=== PATIENT | female | born 1980 | race Caucasian/White ===

== ENCOUNTER 2016-12-16 22:15 | Inpatient (IN) | payer BC ==
[~2016-12-16] VITALS: Ht 165.1 cm; Wt 90.9 kg
[~2016-12-16 22:15] MED LIST: DOCO1CAP10 PO; PRENTAB26 PO
[2016-12-16] MEDS ORDERED: LACTATED RINGER'S 1000ML 1,000 ML IV PRN (23:01)
[2016-12-16] MEDS ORDERED: LACTATED RINGER'S 1000ML 1,000 ML IV SCH (23:01)
[2016-12-16 23:04] VITALS: Ht 165.1 cm; Wt 90.9 kg
[2016-12-16] MEDS ORDERED: PENICILLIN G POTASSIUM IV 3 MU in DEXTROSE 5% 100ML 100 ML IV PRN (23:15)
[2016-12-16] MEDS ORDERED: PENICILLIN G POTASSIUM IV 6 MU in DEXTROSE 5% 250ML 250 ML IV ONE (23:30)
[2016-12-16 23:40] LABS: HEMATOCRIT 34.3 % (37-47); MEAN CELL VOLUME 88.9 fL (80-100); MEAN CORPUSCULAR HEMOGLOBIN 30.6 pg (25-34); MEAN CORPUSCULAR HGB CONC 34.4 g/dl (32-36); MEAN PLATELET VOLUME 12.2 fL (7.4-10.4); PLATELET COUNT 221 K/uL (130-400); RED BLOOD COUNT 3.86 M/uL (4.2-5.4); WHITE BLOOD COUNT 12.37 K/uL (4.8-10.8)
[2016-12-17] MEDS ORDERED: OXYTOCIN 30 UNITS/500ML NSS IV ONE (04:55)
[2016-12-17] MEDS ORDERED: LACTATED RINGER'S 1000ML 1,000 ML IV SCH (05:33)
--- NOTE | 2016-12-17 05:43 | Progress Note ---
Progress Note Date of Service Dec 17, 2016. Progress Note Delivery Note live male over intact perineum with Apgars 8/9 weight pending. Delayed cord blood clamping followed by cord blood and spontaneous delivery of intact placenta. No tears. Final sponge and instrument count are correct. EBL 150 ml. Mom and baby stable.
[2016-12-17] MEDS ORDERED: SUPERCREAM 0.870 % 15GM JAR EXT PRN (05:45)
[2016-12-17] MEDS ORDERED: ACETAMINOPHEN/CODEINE 300/30MG TAB PO PRN ×2 (05:45)
[2016-12-17] MEDS ORDERED: BENZOCAINE 20% AER SPR 82.5 GM CAN EXT PRN (05:45)
[2016-12-17] MEDS ORDERED: IBUPROFEN 600 MG TAB PO PRN (05:45)
[2016-12-17] MEDS ORDERED: OXYTOCIN 30 UNITS/500ML NSS IV PRN (05:45)
[2016-12-17] MEDS ORDERED: ACETAMINOPHEN 325 MG TAB PO PRN (05:45)
[2016-12-17] MEDS ORDERED: LANOLIN OINT EXT PRN ×2 (05:45)
[2016-12-17] MEDS ORDERED: HYDROCORTISONE ACETATE 25 MG SUPP PR PRN (05:45)
--- NOTE | 2016-12-17 06:08 | HISTORY & PHYSICAL EXAMINATION ---
DATE OF ADMISSION: 12/17/2016 HISTORY OF PRESENT ILLNESS: The patient is a 36-year-old white female, para 0-0-0-0 at 40 weeks' and one day, admitted in active labor. She is GBS positive. PAST MEDICAL HISTORY: Positive for polycystic ovaries and history of infertility. PAST SURGICAL HISTORY: Cryosurgery of the cervix and history of laparoscopy in the past for infertility. ALLERGIES: No known drug allergies. MEDICATIONS: vitamins. REVIEW OF SYSTEMS: Negative. FAMILY HISTORY: Noncontributory. PHYSICAL EXAMINATION: HEENT: Within normal limits. LUNGS: Clear to auscultation. COR: Regular rate and rhythm. ABDOMEN: Gravid. heart tones category 1. EXTREMITIES: Within normal limits. NEUROLOGIC: Intact. ASSESSMENT: Term . PLAN: Admit. Anticipate normal delivery.
[2016-12-17 07:50] VITALS: BP 122/73; PULSE 96; TEMP 36.6
[2016-12-17] MEDS: FERROUS SULFATE 325 MG TAB PO SCH (08:00)
[2016-12-17] MEDS: PRENATAL VITAMIN TAB PO SCH (08:00)
[2016-12-17 12:30] VITALS: BP 134/85; PULSE 89; TEMP 37
[2016-12-17 16:00] VITALS: BP 116/72; PULSE 88; TEMP 37.1; O2SAT 97
[2016-12-17 19:25] VITALS: BP 139/85; PULSE 92; TEMP 37.2; O2SAT 98
[2016-12-17] MEDS: DOCUSATE SODIUM 100 MG CAP PO SCH (20:29)
[2016-12-17 23:40] VITALS: BP 127/86; PULSE 83; TEMP 37; O2SAT 99
[2016-12-18 03:35] VITALS: BP 133/83; PULSE 82; TEMP 36.6; O2SAT 98
[2016-12-18 06:58] LABS: HEMATOCRIT 30.9 % (37-47)
--- NOTE | 2016-12-18 07:33 | OB/GYN Progress Note ---
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 Subjective conversation w/ patient, physical exam Ambulation: ambulating normally Voiding: no voiding problems Passing Gas: Yes Diet Tolerance: Regular Diet Lochia: Moderate Review of Systems Constitutional: No chills, No fatigue, No fever, No problem reported, No sweats , No weakness, No weight loss Respiratory: No cough, No dyspnea at rest, No dyspnea on exertion, No hemoptysis, No problem reported, No shortness of breath, No sputum, No wheezing Cardiac: No PND, No chest pain, No claudication, No edema, No orthopnea, No palpitations, No problem reported Breast: No breast lump, No breast pain, No change in shape, No nipple discharge , No problem reported, No see HPI Abdomen: No GI bleeding, No constipation, No diarrhea, No nausea, No pain, No problem reported, No vomiting Female : No abnormal vaginal bleeding, No dysuria, No hematuria, No incontinence, No problem reported, No see HPI, No urinary frequency, No vaginal discharge Vd Day #1 pt doing well anticipate disch tomorrow Objective Vital Signs Date Time Temp Pulse Resp B/P Pulse Ox O2 Delivery O2 Flow Rate FiO2 12/18/16 03:35 36.6 82 18 133/83 98 Room Air 12/17/16 23:40 99 Room Air 12/17/16 23:40 37.0 83 18 127/86 99 Room Air 12/17/16 19:25 37.2 92 18 139/85 98 Room Air 12/17/16 16:00 97 Room Air 12/17/16 16:00 37.1 88 16 116/72 12/17/16 12:30 37.0 89 20 134/85 12/17/16 07:50 36.6 96 20 122/73 Laboratory Results Last 24 Hours Test 12/18/16 06:36 Hemoglobin 10.7 g/dL Hematocrit 30.9 %
[2016-12-18] MEDS: DOCUSATE SODIUM 100 MG CAP PO SCH ×3 (08:00→20:00)
[2016-12-18 08:25] VITALS: BP 135/98; PULSE 86; TEMP 36.7
[2016-12-18] MEDS: FERROUS SULFATE 325 MG TAB PO SCH (08:27)
[2016-12-18] MEDS: PRENATAL VITAMIN TAB PO SCH (08:27)
[2016-12-18] MEDS ORDERED: DIPHTHERIA/TETANUS/PERTUSSIS 0.5 ML SYR/VIAL IM. ONE (09:00)
[2016-12-18] MEDS ORDERED: MEASLES, MUMPS & RUBELLA VIRUS VIAL SQ. ONE (09:00)
[2016-12-18 15:30] VITALS: BP 133/88; PULSE 78; TEMP 36.8
[2016-12-18] MEDS ORDERED: BISACODYL 5 MG TABEC PO SCH (20:00)
[2016-12-18 23:20] VITALS: BP 127/75; PULSE 95; TEMP 36.9; O2SAT 98
[2016-12-19] MEDS ORDERED: BISACODYL 10 MG SUPP PR PRN (07:00)
[2016-12-19] MEDS: FERROUS SULFATE 325 MG TAB PO SCH (07:41)
[2016-12-19] MEDS: PRENATAL VITAMIN TAB PO SCH (07:41)
[2016-12-19 07:50] VITALS: BP_SYST 146; BP_SYST 148; BP_DIAS 100; BP_DIAS 97; PULSE 76; TEMP 36.8
[2016-12-19 08:15] VITALS: BP 138/91
--- NOTE | 2016-12-19 08:40 | Discharge Instructions ---
Discharge Instructions Admission Reason for Admission: Active Labor Discharge Discharge Diagnosis / Problem: term delivered Discharge Goals Goal(s): Routine recovery after delivery Activity Recommendations Activity Limitations: as noted below Lifting Limitations: gradually increase as tolerated Exercise/Sports Limitations: gradually increase as tolerated May Resume Sexual Activity: after follow-up appointment Shower/Bathe: no limitations Driving or Machine Use: resume 3 days after discharge . Instructions / Follow-Up Instructions / Follow-Up ACTIVITY RECOMMENDATIONS: * Gradual return to full activity over the next 2-3 weeks. * No lifting - nothing heavier than baby over the next 2-3 weeks. * Do not engage in vigorous exercise, sexual activity or sports until cleared by your physician. * Do not drive or operate any motorized equipment until cleared by your physician. * You may shower/bathe daily. BREAST CARE: If you are not breast feeding: * Wear a supportive bra 24 hours a day for one to two weeks. * Avoid stimulating your breasts and nipples as much as possible during the first few weeks after delivery. * When taking a shower, have the warm water hit your back, not breasts. * When your breasts feel full, apply ice packs. Usually three to four times a day helps ease the discomfort. * Take a mild pain medication (Tylenol/Motrin) when you are uncomfortable. If breast feeding: * Use breast milk to lubricate nipples. Lansinoh cream may be used for sore nipples. You do not need to remove cream prior to breast feeding. If using a different brand of cream, check the label for directions regarding removal of cream prior to nursing. * Wear a supportive bra. * If having problems with breasts or breast feeding, call a bank consultant or your health care provider. EPISIOTOMY CARE: After delivery, if you have an episiotomy (stitches), the following steps will ease discomfort and aid healing. * For the first 24 hours after delivery, place ice packs next to your episiotomy to help reduce swelling. * After the first 24 hour-period, sitz baths, either portable or in the tub, are suggested. A shower with a shower arm sprayed over the episiotomy may be comforting. * Carrie care should be done after each voiding and bowel movement. Squirt warm water from a plastic bottle over the perineum (region of the body between the anus and urinary opening) and pat dry. * Use Dermoplast to ease discomfort. Shake container. [place] directly over the episiotomy. * Place a Tucks on a clean sanitary pad next to your episiotomy. OVER THE COUNTER MEDICATION: * For discomfort or pain, you may use Acetaminophen (Tylenol), Ibuprofen (Advil ), or Naproxen (Aleve) following the package directions. * For constipation you may use Colace following the package directions. SPECIAL CARE INSTRUCTIONS: When you are discharged from the hospital, it is important for you to follow the instructions listed below: * During the first week at home, you should be able to care for yourself and your baby. In addition, the usual light household activities are encouraged. * Limit your activities to the way you feel. Do not try to clean the house or move furniture. Be sensible. * If you actively engage in sports and have done so up until the time of your delivery, you may resume these activities as soon as you feel able. This may take up to one month or even longer. Use good judgment. * Continue to take your vitamins for at least six weeks after the of your baby. * Your diet need not be limited unless you were on a special diet before your delivery. Breast-feeding mothers need around 2500 calories per day and at least 64-80 ounces of fluid per day (8 to 10 glasses). * You should eat foods from the four major food groups. Crash diets or fad diets are to be avoided. Eating lean meats, fresh fruits and vegetables, low-fat dairy products, high fiber foods and a regular exercise program, will help you get back to your pre- weight without putting your health at risk. * Constipation is sometimes a problem after delivery. Take a mild laxative as needed. If breast feeding, Milk of Magnesia is acceptable to use. You may use a suppository or Fleets enema if no episiotomy. * A daily shower or tub bath is suggested. Be sure to thoroughly and gently dry the perineum. * A bloody vaginal discharge will usually continue until around four weeks post . A small amount of bleeding may continue for as long as six weeks. Vaginal discharge changes from the bright red bleeding after delivery to pink then brownish and finally yellowish-pink before becoming white and disappearing. * Bleeding may increase with activity. Your first period may come in 4-8 weeks. If you are breast feeding, your period may be delayed even longer. * [place] (sex) can begin whenever both you and your partner feel comfortable and do not have any form of genital infection. It is recommended that you wait until after your return appointment and discuss with your physician. If you have questions, please talk to your health care practitioner. A condom should be used to prevent infection and . * Foreplay, gentle intercourse and lubrication is very important the first several times to prevent pain. A water-based lubricant such as K-Y jelly or Astroglide may be used. * Tampons may be used six weeks after delivery. * Douching should be avoided for 6 weeks after delivery. * If you have RH negative blood and your baby is RH positive, you will receive RHOGAM by injection prior to discharge. The nurse will give you a card to keep with you that has the date and place that you received RHOGAM after delivery. * During your care, you had a Rubella screen done to check for the presence of rubella antibodies in your blood. If your test was negative, you will receive a Rubella vaccine prior to discharge. This vaccine may cause a fever, soreness at the injection site and flu-like symptoms. If these symptoms persist, notify your health care practitioner. is not advised for three months after a Rubella vaccine. There is a higher chance of having a baby with defects if conceived within three months of getting the vaccine. * If you were discharged 24 hours from delivery or before 48 hours: Visiting nurses will come to your home 48 hours after discharge to assess you and your baby. The visiting nurse will meet with you while you are in the hospital to arrange a time and get directions to your home. * Verbalizes understanding of car seat law as reviewed with patient nursing. * Car Seat hand-out given and reviewed with patient by nursing. * Shaken baby information reviewed with patient by nursing. Call you doctor if: * Heavy bleeding (saturating several pads an hour) or passing clots the size of your fist. * A fever >101 degrees F (38.3 degrees C) on two occasions four hours apart and/or chills. * Unusual pain in the pelvic or vaginal areas. * "Baby Blues" lasting longer than two weeks. If you have any questions or concerns, call your health care practitioner at . FOLLOW-UP VISIT: * Please call the office at to schedule a 6 week examination. It is important you keep this appointment. * It is important for you to make arrangements for either yearly or twice yearly check-ups thereafter. Current Hospital Diet Patient's current hospital diet: Regular OB Diet Discharge Diet Recommended Diet: Regular OB Diet Pending Studies Studies pending at discharge: no Medical Emergencies . Who to Call and When: Medical Emergencies: If at any time you feel your situation is an emergency, please call 911 immediately. . Non-Emergent Contact Non-Emergency issues call your: Primary Care Provider . . "Provider Documentation" section prepared by Daren Curiel. VTE Core Measure Inpt VTE Proph given/why not?: Treatment not indicated
--- NOTE | 2016-12-19 08:42 | OB/GYN Progress Note ---
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 Subjective conversation w/ patient Ambulation: ambulating normally, limited ambulation Voiding: no voiding problems Passing Gas: Yes Diet Tolerance: Regular Diet Lochia: Small Feeding Type: Breast Feeding Objective Vital Signs Date Time Temp Pulse Resp B/P Pulse Ox O2 Delivery O2 Flow Rate FiO2 12/18/16 23:20 36.9 95 18 127/75 98 Room Air 12/18/16 23:20 Room Air 12/18/16 15:30 36.8 78 20 133/88 Room Air 12/18/16 15:30 Room Air Physical Exam General Appearance: NO APPARENT DISTRESS Abdomen: non tender Fundus: Firm Extremities: non-tender, normal inspection, no pedal edema Assessment and Plan Post- Day Number: 2 Continue Routine Care: discharged
[2016-12-19 15:15] VITALS: BP_DIAS 91; PULSE 76; TEMP 36.8
== END 2016-12-19 12:00 | disposition home or self-care (01) | DRG 775 ==
LOC: C.LD 22:15 → C.OPB 22:15 → C.LD 23:02 → C.OPB 23:02 → C.OBG 12-17 07:49
PROVIDERS: ADMIT Obstetrics & Gynecology; ATTEND Obstetrics & Gynecology
PROC: 10E0XZZ Delivery of Products of Conception, External Approach (ICD-10-PCS; principal; 2016-12-17)
DX: O48.0 Post-term pregnancy (principal); Z37.0 Single live birth; O99.824 Streptococcus B carrier state complicating childbirth; Z3A.40 40 weeks gestation of pregnancy

== ENCOUNTER 2023-03-04 21:34 | Inpatient (IN) ==
[2023-03-04] MEDS ORDERED: SODIUM CHLORIDE 0.9% 1000ML 1,000 ML IV STA (22:17)
[2023-03-04] MEDS ORDERED: KETOROLAC TROMETHAMINE 15 MG/ML VIAL IV STA (22:17)
--- NOTE | 2023-03-04 22:30 | Emergency Department Note ---
Impression & Plan Diverticulitis of intestine with perforation and abscess, Left lower quadrant abdominal pain, Diarrhea ED Provider Note CHIEF COMPLAINT: Abdominal pain x1 week HISTORY OF PRESENT ILLNESS: This 42-year-old female patient presents to the emergency department via private vehicle for evaluation abdominal pain for the past 1 week. The patient states she started with sharp cramping, stabbing pain on Monday. By Monday, she had developed diarrhea which lasted about 24 hours. The diarrhea has seemed to improve but she has continued to experience cramping pains in her lower abdomen which have localized to the mid to left side. The patient states her menstrual period started today. She denies any associated documented fever, but did have chills 2 days ago and believes she may have had a fever at that time. She denies any abnormal vaginal discharge or pain with intercourse. The patient states that she does feel increased pressure when her bladder is full like she has to urinate. She has been taking Tylenol and naproxen without relief of her symptoms. She denies any nausea or vomiting. No dysuria, no frequency, urinary hesitancy, hematuria. No hematochezia or melena. REVIEW OF SYSTEMS: A 10 system review of systems was performed with positives and pertinent negatives listed in the history of present illness. All other systems were reviewed and are negative. ALLERGIES: Cat dander PHYSICAL EXAM: VITALS: Vitals are noted on the nurse's note and reviewed by myself. Vital signs stable. GENERAL: This is a 42-year-old female, in no acute distress, nondiaphoretic, we ll-developed well-nourished. SKIN: The skin was without rashes, erythema, edema, or bruising. There is no tenting of the skin. Capillary refill less than 2 seconds. HEAD: Normocephalic atraumatic. EYES: Conjunctivae without injection, sclerae without icterus. NECK: Supple without nuchal rigidity. No lymphadenopathy. No JVD. HEART: Regular rate and rhythm without murmurs gallops or rubs. LUNGS: Clear to auscultation bilaterally without wheezes, rales or rhonchi. No retractions or accessory muscle use. ABDOMEN: Positive bowel sounds x 4. Suprapubic tenderness to palpation, left greater than right. The abdomen is otherwise soft, without masses or organomegaly. Ceron sign negative. No guarding or rebound tenderness. No CVA tenderness bilaterally. MUSCULOSKELETAL: No muscle atrophy, erythema, or edema noted. Full range of motion without joint tenderness in all extremities. No tenderness to palpation. Normal gait. Strength 5/5 throughout. NEURO: Patient was alert and oriented to person place and time. No focal neurological deficits. An order was placed for continuous satellite project site monitor. The monitor showed a normal sinus rhythm at a ventricular rate of 98 bpm, per my interpretation. EMERGENCY DEPARTMENT COURSE: The patient was seen and evaluated as above. IV access obtained, labs drawn. Patient was medicated with IV fluids and Toradol. Ultrasound imaging was performed reviewed by myself and radiologist as noted. There was concern for loculated fluid collection in the left lower quadrant. The patient had already been prepped for CT imaging. This was completed and concerning for perforated diverticulitis with a 4.1 cm left lower quadrant abscess. Patient does have a leukocytosis of 13,000. Mild anemia with a hemoglobin of 11.2, hematocrit of 32.8. No thrombocytopenia. Renal, hepatic function and electrolytes without significant abnormality. Lipase 28. hCG negative. Urinalysis positive for blood and protein. Of note, the patient is currently menstruating. I did discuss the case with Loki Hernandez PA-C with general surgery. He did see and evaluate the patient. He did request that the patient be admitted to the medicine service. The patient was medicated with IV Zosyn. She was updated on all findings. [facility] did agree to see and evaluate the patient. Please see hospitalist and general surgery dictation regarding ongoing management care of this patient. Differential diagnosis includes ovarian torsion, endometriosis, ectopic , pelvic pain, UTI, cystitis, appendicitis, diverticulitis, mesenteric ischemia, PID, inflammatory bowel disease, renal colic, as well as other pathologies. I attest that I have personally reviewed the patient's current medication list. Blood Pressure Screening: Patient was found to have a slightly elevated blood pressure due to circumstances. I do not believe that the patient requires hypertension monitoring. The chart was completed utilizing [employer] voice recognition software. Grammatical errors, random word insertions, pronoun errors, and incomplete sentences are an occasional consequence of this system due to software limitations, ambient noise, and hardware issues. Any formal questions or concerns about the content, text, or information contained within the body of this dictation should be directly addressed to the provider for clarification. Past Med/Surg History Medical History No pertinent past medical history Social History Smoking Status: Never smoker Preferred Language: Malay Feels Safe at Home: Yes Allergies Allergies Allergy/AdvReac Type Severity Reaction Status Date / Time cat dander Allergy Unknown unk Verified 03/05/23 00:26 Home Meds Home Medications Medication Instructions Recorded Confirmed magnesium 250 mg tablet 0 mg PO DAILY 03/05/23 03/05/23 multivitamin 1 tab PO DAILY 03/05/23 03/05/23 riboflavin (vitamin B2) 400 mg 400 mg PO DAILY 03/05/23 03/05/23 tablet sumatriptan succinate 50 mg tablet 50 mg PO DIRECTED PRN Migraine 03/05/23 03/05/23 Headache Results & Data (ED) Vital Signs Vital Signs - 24 hr 03/04/23 21:35 03/04/23 22:23 03/04/23 22:24 Temperature 36.7 C Temperature Source Temporal Artery Scan Pulse Rate 104 H 98 H 99 H Pulse Rate from SpO2 Sensor 99 H Pulse Rhythm Regular Regular Pulse Strength Normal Respiratory Rate 18 20 21 Respiratory Effort / Characteristics Non-Labored Spontaneous Respiratory Depth Normal Respiratory Pattern Regular Blood Pressure 140/90 Blood Pressure Mean 106 Blood Pressure Position Sitting Pulse Oximetry 100 98 98 Oxygen Delivery Method Room Air Room Air Oxygen Flow Rate Sepsis Recent Fever Within 48 Hours No Sepsis New/Unexplained Change in Mental Status N/A Sepsis Action Taken by Nursing No Action Required 03/04/23 22:30 03/04/23 23:45 03/05/23 00:20 Temperature Temperature Source Pulse Rate 100 H 110 H 102 H Pulse Rate from SpO2 Sensor 99 H 103 H Pulse Rhythm Pulse Strength Respiratory Rate 15 26 H 23 Respiratory Effort / Characteristics Respiratory Depth Respiratory Pattern Blood Pressure 123/74 Blood Pressure Mean 90 Blood Pressure Position Pulse Oximetry 99 97 98 Oxygen Delivery Method High Flow Nasal Cannula Oxygen Flow Rate 2 Sepsis Recent Fever Within 48 Hours Sepsis New/Unexplained Change in Mental Status Sepsis Action Taken by Nursing 03/05/23 00:30 03/05/23 00:40 03/05/23 00:50 Temperature Temperature Source Pulse Rate 99 H 101 H 102 H Pulse Rate from SpO2 Sensor 98 H 102 H 104 H Pulse Rhythm Pulse Strength Respiratory Rate 24 23 26 H Respiratory Effort / Characteristics Respiratory Depth Respiratory Pattern Blood Pressure Blood Pressure Mean Blood Pressure Position Pulse Oximetry 98 97 98 Oxygen Delivery Method Oxygen Flow Rate Sepsis Recent Fever Within 48 Hours Sepsis New/Unexplained Change in Mental Status Sepsis Action Taken by Nursing 03/05/23 01:00 03/05/23 01:10 03/05/23 01:20 Temperature Temperature Source Pulse Rate 100 H 102 H 102 H Pulse Rate from SpO2 Sensor 101 H 101 H 101 H Pulse Rhythm Pulse Strength Respiratory Rate 26 H 18 28 H Respiratory Effort / Characteristics Respiratory Depth Respiratory Pattern Blood Pressure Blood Pressure Mean Blood Pressure Position Pulse Oximetry 96 99 96 Oxygen Delivery Method Oxygen Flow Rate Sepsis Recent Fever Within 48 Hours Sepsis New/Unexplained Change in Mental Status Sepsis Action Taken by Nursing 03/05/23 01:30 03/05/23 01:34 03/05/23 01:58 Temperature Temperature Source Pulse Rate 101 H 99 H 100 H Pulse Rate from SpO2 Sensor 101 H Pulse Rhythm Pulse Strength Respiratory Rate 22 20 Respiratory Effort / Characteristics Respiratory Depth Respiratory Pattern Blood Pressure 123/80 Blood Pressure Mean 94 Blood Pressure Position Pulse Oximetry 97 96 Oxygen Delivery Method Room Air Room Air Oxygen Flow Rate Sepsis Recent Fever Within 48 Hours Sepsis New/Unexplained Change in Mental Status Sepsis Action Taken by Nursing Laboratory Data 03/04/23 22:00 03/04/23 22:00 Lab Results 03/04/23 03/04/23 03/04/23 Range/Units 22:00 22:00 22:00 WBC 13.15 H (4.8-10.8) K/ul RBC 3.73 L (4.20-5.40) M/uL Hgb 11.2 L (12.0-16.0) g/dl Hct 32.8 L (37.0-47.0) % MCV 87.9 (80.0-100.0) fL MCH 30.0 (25.0-34.0) pg MCHC 34.1 (32.0-36.0) g/dL RDW Std Deviation 43.7 (36.4-46.3) fL RDW Coeff of Eun 13.5 (11.5-14.5) % Plt Count 366 (130-400) K/uL MPV 9.9 (9.4-12.4) fL Immature Gran % (Auto) 0.5 % Neut % (Auto) 78.5 % Lymph % (Auto) 9.4 % [place] % (Auto) 11.0 % Eos % (Auto) 0.4 % Baso % (Auto) 0.2 % Neut # (Auto) 10.34 H (1.40-6.50) K/uL Lymph # (Auto) 1.23 (1.2-3.4) K/uL [place] # (Auto) 1.44 H (0.11-0.59) K/uL Eos # (Auto) 0.05 (0-0.50) K/uL Baso # (Auto) 0.03 (0-0.2) K/uL Immature Gran # (Auto) 0.06 (0.01-0.20) K/uL Sodium 138 (136-145) mmol/L Potassium 3.1 L (3.5-5.1) mmol/L Chloride 100 (98-107) mmol/L Carbon Dioxide 28 (21-32) mmol/L Anion Gap 10 (3-11) BUN 9 (6-23) mg/dl Creatinine 0.63 (0.6-1.2) mg/dl Est Cr Clr Drug Dosing 117.9 ml/min Est GFR ( Amer) 130.0 ml/min Est GFR (Non-Af Amer) 112.2 ml/min BUN/Creatinine Ratio 14.3 (10-20) Glucose 99 (70-99(Fasting)) mg/dl Lactate (0.4-2.0) mmol/L Calcium 8.8 (8.6-10.3) mg/dl Total Bilirubin 0.4 (0.2-1.0) mg/dl AST 13 (13-39) U/L ALT 16 (7-52) U/L Alkaline Phosphatase 73 (34-104) U/L Total Protein 7.3 (6.0-8.3) gm/dl Albumin 3.9 (3.4-5.0) gm/dl Globulin 3.4 (2.5-4.0) gm/dl Albumin/Globulin Ratio 1.1 (0.9-2) Lipase 20 (11-82) U/L HCG, Qual Negative (Negative) Urine Color Urine Appearance (Clear) Urine pH (4.5-7.5) Ur Specific [place] (1.000-1.030) Urine Protein (Negative) Urine Glucose (UA) (Negative) Urine Ketones (Negative) Urine Blood (Negative) Urine Nitrite (Negative) Urine Bilirubin (Negative) Urine Urobilinogen (Negative) Ur Leukocyte Esterase (Negative) Urine WBC (Auto) (0-5) /hpf Urine RBC (Auto) (0-4) /hpf U Hyaline Cast (Auto) (0-5) /lpf U Epithel Cells (Auto) (0-5) /lpf Urine Bacteria (Auto) (Negative) SARS-CoV-2, RNA, NAAT (NEGATIVE) 03/04/23 03/04/23 03/05/23 Range/Units 22:00 23:57 01:12 WBC (4.8-10.8) K/ul RBC (4.20-5.40) M/uL Hgb (12.0-16.0) g/dl Hct (37.0-47.0) % MCV (80.0-100.0) fL MCH (25.0-34.0) pg MCHC (32.0-36.0) g/dL RDW Std Deviation (36.4-46.3) fL RDW Coeff of Eun (11.5-14.5) % Plt Count (130-400) K/uL MPV (9.4-12.4) fL Immature Gran % (Auto) % Neut % (Auto) % Lymph % (Auto) % [place] % (Auto) % Eos % (Auto) % Baso % (Auto) % Neut # (Auto) (1.40-6.50) K/uL Lymph # (Auto) (1.2-3.4) K/uL [place] # (Auto) (0.11-0.59) K/uL Eos # (Auto) (0-0.50) K/uL Baso # (Auto) (0-0.2) K/uL Immature Gran # (Auto) (0.01-0.20) K/uL Sodium (136-145) mmol/L Potassium (3.5-5.1) mmol/L Chloride (98-107) mmol/L Carbon Dioxide (21-32) mmol/L Anion Gap (3-11) BUN (6-23) mg/dl Creatinine (0.6-1.2) mg/dl Est Cr Clr Drug Dosing ml/min Est GFR ( Amer) ml/min Est GFR (Non-Af Amer) ml/min BUN/Creatinine Ratio (10-20) Glucose (70-99(Fasting)) mg/dl Lactate 1.2 (0.4-2.0) mmol/L Calcium (8.6-10.3) mg/dl Total Bilirubin (0.2-1.0) mg/dl AST (13-39) U/L ALT (7-52) U/L Alkaline Phosphatase (34-104) U/L Total Protein (6.0-8.3) gm/dl Albumin (3.4-5.0) gm/dl Globulin (2.5-4.0) gm/dl Albumin/Globulin Ratio (0.9-2) Lipase (11-82) U/L HCG, Qual (Negative) Urine Color Yellow Urine Appearance Clear (Clear) Urine pH 6.5 (4.5-7.5) Ur Specific [place] 1.011 (1.000-1.030) Urine Protein 1+ H (Negative) Urine Glucose (UA) Negative (Negative) Urine Ketones Negative (Negative) Urine Blood 1+ H (Negative) Urine Nitrite Negative (Negative) Urine Bilirubin Negative (Negative) Urine Urobilinogen Negative (Negative) Ur Leukocyte Esterase Negative (Negative) Urine WBC (Auto) 1-5 (0-5) /hpf Urine RBC (Auto) 0-4 (0-4) /hpf U Hyaline Cast (Auto) 0 (0-5) /lpf U Epithel Cells (Auto) 10-20 H (0-5) /lpf Urine Bacteria (Auto) Negative (Negative) SARS-CoV-2, RNA, NAAT NEGATIVE (NEGATIVE) Administered Medications Discontinued Medications Sodium Chloride (Nss 1000ml) 1,000 mls @ 999 mls/hr IV .Q1H1M STA Stop: 03/04/23 23:17 Last Infusion: 03/05/23 00:00 Dose: 0 mls/hr Documented By: Admin: 03/04/23 22:33 Dose: 999 mls/hr Documented By: DAYANA Piperacillin Sod/Tazobactam Sod (Zosyn) 4.5 gm in 120 mls @ 240 mls/hr IV NOW ONE Stop: 03/05/23 01:40 Last Infusion: 03/05/23 02:30 Dose: 0 mls/hr Documented By: Admin: 03/05/23 01:56 Dose: 240 mls/hr Documented By: DAYANA Ioversol (Optiray 320 500ml) 98 ml IV ONCE ONE Stop: 03/05/23 00:23 Last Admin: 03/05/23 00:22 Dose: 98 ml Documented By: VERNA Ketorolac Tromethamine (Ketorolac Tromethamine 15 Mg/Ml Vial) 10 mg IV NOW STA Stop: 03/04/23 22:18 Last Admin: 03/04/23 22:28 Dose: 10 mg Documented By: DAYANA Imaging Data Radiologist's Impression: Abdomen/Pelvis CT 03/04/23 22:17 Exam(s): CT ABDOMEN + PELVIS With Contrast Oral - High Density Amt: 30ml Gastrograffin, IV Amt: 98ml Optiray 320 EXAM: CT Abdomen and Pelvis With Intravenous Contrast CLINICAL HISTORY: Reason for exam: suprapubic, LLQ pain. TECHNIQUE: Axial computed tomography images of the abdomen and pelvis with intravenous contrast. Automated exposure control was utilized for the study. A dose lowering technique was utilized adhering to the principles of ALARA. CONTRAST: Patient received 30ml Gastrograffin of Oral - High Density and 98ml Optiray 320 of IV contrast COMPARISON: No relevant prior studies available. FINDINGS: Lung bases: Unremarkable. No mass. No consolidation. ABDOMEN: Liver: Unremarkable. No mass. Gallbladder and bile ducts: Unremarkable. No calcified stones. No ductal dilation. Pancreas: Unremarkable. No mass. No ductal dilation. Spleen: Unremarkable. No splenomegaly. Adrenals: Unremarkable. No mass. Kidneys and ureters: Unremarkable. No solid mass. No hydronephrosis. Stomach and bowel: Findings suggest perforated diverticulitis with an air and fluid-filled collection in the left lower quadrant measuring 4.1 x 3.3 x 3.6 cm. No obstruction. PELVIS: Appendix: No findings to suggest acute appendicitis. Bladder: Unremarkable. No mass. Reproductive: There is a tampon in place within the vagina. ABDOMEN and PELVIS: Intraperitoneal space: Unremarkable. No free air. No significant fluid collection. Bones/joints: No acute fracture. No dislocation. Soft tissues: Unremarkable. Vasculature: Unremarkable. No abdominal aortic aneurysm. Lymph nodes: Unremarkable. No enlarged lymph nodes. IMPRESSION: Perforated diverticulitis with a 4.1 cm left lower quadrant abscess. Electronically signed by: Siva Zavala MD 03/05/23 00:49 AM Pelvis Ultrasound 03/04/23 22:17 Exam(s): US PELVIS EXAM: US Pelvis Transabdominal, Complete CLINICAL HISTORY: Reason for exam: pelvic pain, LLQ pain. TECHNIQUE: Real-time complete transabdominal pelvic ultrasound with image documentation. COMPARISON: No relevant prior studies available. FINDINGS: Uterus/cervix: Endometrial lining measures 0.8 cm. The uterus measures 7.3 x 3.9 x 5.0 cm. No myometrial mass. Right ovary: The right ovary measures 4.2 x 1.7 x 2.8 cm. Normal blood flow. Left ovary: The left ovary measures 3.8 x 2.6 x 3.3 cm. Normal blood flow. Free fluid: There is some loculated fluid in the left lower quadrant. Bladder: Unremarkable as visualized. Wall is normal thickness for degree of distention. IMPRESSION: Loculated fluid in the left lower quadrant, further evaluation with CT is suggested. Unremarkable evaluation of the uterus and ovaries. Electronically signed by: Siva Zavala MD 03/05/23 00:18 AM Discharge Plan Visit Data Chief Complaint: Abdominal Pain Stated Complaint: LOWER ABDOMINAL PAIN ED Provider: Loi Brar ED Midlevel Provider: Marce Sosa Discharge Problem: Diverticulitis of intestine with perforation and abscess, Left lower quadrant abdominal pain, Diarrhea Patient Disposition: Admitted As Inpatient Discharge Instructions Interventions: ED Discharge Assessment Last Done: 03/05/23 03:13
[2023-03-04 22:32] LABS: Appearance Urine Clear (Clear); Bacteria Urine Automated Negative (Negative); Bilirubin Urine Negative (Negative); Blood Urine 1+ (Negative); Cast Urine Automated 0 /lpf (0-5); Color Urine Yellow; Glucose Urine UA Negative (Negative); Ketones Urine Negative (Negative); Leukocyte Esterase Urine Negative (Negative); Nitrite Urine Negative (Negative); Protein Urine 1+ (Negative); RBC Urine Automated 0-4 /hpf (0-4); Specific Gravity Urine 1.011 (1.000-1.030); Urobilinogen Urine Negative (Negative); pH Urine 6.5 (4.5-7.5)
[2023-03-04 22:36] LABS: Basophils # (auto) 0.03 K/uL (0-0.2); Basophils % (auto) 0.2 %; Eosinophils # (auto) 0.05 K/uL (0-0.50); Eosinophils % (auto) 0.4 %; Hematocrit (blood only) 32.8 % (37.0-47.0); Hemoglobin 11.2 g/dl (12.0-16.0); Immature Granulocytes # (auto) 0.06 K/uL (0.01-0.20); Immature Granulocytes % (auto) 0.5 %; Lymphocytes # (auto) 1.23 K/uL (1.2-3.4); Lymphocytes % (auto) 9.4 %; Mean Corpuscular Hgb Conc 34.1 g/dL (32.0-36.0); Mean Corpuscular Volume 87.9 fL (80.0-100.0); Mean Platelet Volume 9.9 fL (9.4-12.4); Monocytes # (auto) 1.44 K/uL (0.11-0.59); Neutrophils # (auto) 10.34 K/uL (1.40-6.50); Neutrophils % (auto) 78.5 %; Platelet Count 366 K/uL (130-400); RDW Coefficient of Variation 13.5 % (11.5-14.5); RDW Standard Deviation 43.7 fL (36.4-46.3); Red Blood Count 3.73 M/uL (4.20-5.40); White Blood Count 13.15 K/ul (4.8-10.8)
[2023-03-04 22:48] LABS: Pregnancy Test, Serum Negative (Negative)
[2023-03-04 22:51] LABS: Albumin Globulin Ratio 1.1 (0.9-2); Albumin Level 3.9 gm/dl (3.4-5.0); BUN Creatinine Ratio 14.3 (10-20); Bilirubin,Total 0.4 mg/dl (0.2-1.0); Calcium 8.8 mg/dl (8.6-10.3); Creatinine Clr Calc Pharmacy 117.9 ml/min; Est GFR (Non-African American) 112.2 ml/min; Globulin 3.4 gm/dl (2.5-4.0); Potassium 3.1 mmol/L (3.5-5.1); Total Protein 7.3 gm/dl (6.0-8.3)
--- NOTE | 2023-03-05 00:19 | Ultrasound Report ---
Exam(s): US PELVIS EXAM: US Pelvis Transabdominal, Complete CLINICAL HISTORY: Reason for exam: pelvic pain, LLQ pain. TECHNIQUE: Real-time complete transabdominal pelvic ultrasound with image documentation. COMPARISON: No relevant prior studies available. FINDINGS: Uterus/cervix: Endometrial lining measures 0.8 cm. The uterus measures 7.3 x 3.9 x 5.0 cm. No myometrial mass. Right ovary: The right ovary measures 4.2 x 1.7 x 2.8 cm. Normal blood flow. Left ovary: The left ovary measures 3.8 x 2.6 x 3.3 cm. Normal blood flow. Free fluid: There is some loculated fluid in the left lower quadrant. Bladder: Unremarkable as visualized. Wall is normal thickness for degree of distention. IMPRESSION: Loculated fluid in the left lower quadrant, further evaluation with CT is suggested. Unremarkable evaluation of the uterus and ovaries. Electronically signed by: Siva Zavala MD 03/05/23 00:18 AM
[2023-03-05] MEDS ORDERED: OPTIRAY 320 500ml IV ONE (00:22)
--- NOTE | 2023-03-05 00:50 | CT Scan Report ---
Exam(s): CT ABDOMEN + PELVIS With Contrast Oral - High Density Amt: 30ml Gastrograffin, IV Amt: 98ml Optiray 320 EXAM: CT Abdomen and Pelvis With Intravenous Contrast CLINICAL HISTORY: Reason for exam: suprapubic, LLQ pain. TECHNIQUE: Axial computed tomography images of the abdomen and pelvis with intravenous contrast. Automated exposure control was utilized for the study. A dose lowering technique was utilized adhering to the principles of ALARA. CONTRAST: Patient received 30ml Gastrograffin of Oral - High Density and 98ml Optiray 320 of IV contrast COMPARISON: No relevant prior studies available. FINDINGS: Lung bases: Unremarkable. No mass. No consolidation. ABDOMEN: Liver: Unremarkable. No mass. Gallbladder and bile ducts: Unremarkable. No calcified stones. No ductal dilation. Pancreas: Unremarkable. No mass. No ductal dilation. Spleen: Unremarkable. No splenomegaly. Adrenals: Unremarkable. No mass. Kidneys and ureters: Unremarkable. No solid mass. No hydronephrosis. Stomach and bowel: Findings suggest perforated diverticulitis with an air and fluid-filled collection in the left lower quadrant measuring 4.1 x 3.3 x 3.6 cm. No obstruction. PELVIS: Appendix: No findings to suggest acute appendicitis. Bladder: Unremarkable. No mass. Reproductive: There is a tampon in place within the vagina. ABDOMEN and PELVIS: Intraperitoneal space: Unremarkable. No free air. No significant fluid collection. Bones/joints: No acute fracture. No dislocation. Soft tissues: Unremarkable. Vasculature: Unremarkable. No abdominal aortic aneurysm. Lymph nodes: Unremarkable. No enlarged lymph nodes. IMPRESSION: Perforated diverticulitis with a 4.1 cm left lower quadrant abscess. Electronically signed by: Siva Zavala MD 03/05/23 00:49 AM
[2023-03-05] MEDS ORDERED: PIPERACILLIN/TAZOBACTAM 4.5 GM/120 ML BAG IV ONE (01:11)
--- NOTE | 2023-03-05 01:40 | Surgery Consultation ---
Date of Consultation March 05, 2023 Assessment & Plan (1) Diverticulitis: I discussed with the treating emergency room provider. The patient is being admitted on the hospitalist service. We recommend proceeding as follows: Provide analgesics Provide antiemetics Hydration measures are to be employed utilizing IV fluids, supplementing her potassium. Broad-spectrum antibiotic should be administered. I discussed with the treating clinician emergency department and Zosyn will be initiated and should continue N.p.o. status to be implemented. I did discuss with the patient that she may have an occasional ice chip for comfort. I discussed with the patient the reasoning for bowel rest. I discussed with her that we will consider advancing her diet, beginning with clear liquids, once her abdominal exam improves and she has improvement of her bowel function Serial labs should be followed I discussed the treatment plan with the patient outlining the rationale for conservative treatment as noted above. I did discuss with her that if surgical intervention on her bowel were to be entertained it would be preferable to avoid an emergency operation and this increases the probability of requiring a colostomy. I discussed with her that we would like to resolve this infection and if surgery is to be considered in the future it would be preferable if she were to have a colonoscopy and adequate bowel prep prior to doing so. I also discussed with the patient that as this is her first episode of diverticulitis surgery may not be required at all. I also discussed with her if there is any signs of clinical deterioration repeat imaging can be considered and an emergency operation may be necessary if clinical deterioration is noted. At the present time the patient is noted to be hemodynamically stable, afebrile, and nontoxic-appearing. I therefore feel a trial of conservative treatment is reasonable. I also discussed with the patient the possibility of IR drainage. At the present time her abscess is less than 5 cm making the possibility of IR drainage less likely. We will monitor the patient's clinical response and we can have our IR colleagues review the patient's CT scan to see if percutaneous drainage is advisable. DVT prophylaxis can be initiated and we will defer this to the admitting service Additional recommendations be forthcoming based on her clinical course as it unfolds Supervising Physician Co-Signing Physician Notes I saw and examined this patient with the surgical PA this am and I agree with the plan. Of note, her leukocytosis is improving. Tylenol was used to treat a fever at 0345 which defervesced. History of Present Illness Reason for Consultation: Diverticulitis History of Present Illness This is a 42-year-old female who presented to the emergency department secondary to abdominal pain. The patient says that she has been having abdominal pain for approximately 1 week. She said that the pain was initially in various places in her abdomen but has ultimately settled in the left lower quadrant. She has not had any nausea or vomiting. She notes that the pain does not radiate. She notes that when the pain began it was improved at home with Tylenol and Aleve but since it has been persistent she presented to the emergency department. She does note that the pain is somewhat worse after eating. The patient notes that she has felt febrile but notes that she did not have a functional thermometer at home. She says that she has been moving her bowels and passing gas up to and including today. She did report a few episodes of loose bowel movements earlier in the week. She denies any bright blood per rectum. She notes her most recent oral intake was at approximately 4:30 PM on 03/04/2023. She notes that she has had previous surgeries in the form of a laparoscopic fertility surgery. She also notes that she has never had a colonoscopy. Since arrival to the emergency department the patient has had labs and imaging which I independent reviewed. Patient did have a pelvic ultrasound that showed the patient had loculated fluid in the left lower quadrant. This was followed up with a CT scan of the abdomen and pelvis utilizing IV and oral contrast. This CT scan showed that patient did not have findings consistent with ap pendicitis. There is no free air noted. The patient was noted to have evidence of perforated diverticulitis with an air and fluid collection in the left lower quadrant measuring approximately 4.1 x 3.3 x 3.6 cm. There is no evidence of bowel obstruction. Labs include a CBC her white blood cell count was 13.1. Hemoglobin and hematocrit were 11.2 and 32.8. Platelet count was normal. Chemistry profile showed sodium was 138 with a potassium of 3.1. BUN and creatinine were normal and there were no elevation of LFTs. A test was negative. Lipase was nonelevated. Urinalysis was not indicative of infection. At the time of my interview the patient was resting comfortably in bed and she was in no distress. Concerning past medical history patient denies any medical problems Concerning past surgical history she has had a laparoscopic fertility surgery Concerning allergies she denies allergies Concerning social history she is a non-smoker Concerning family history she does report coronary artery disease which developed in her grandparents when they were elderly. Her father had colon cancer in his 70's. Her mother has had large colon polyps. Allergies Allergy/AdvReac Type Severity Reaction Status Date / Time cat dander Allergy Unknown unk Verified 03/05/23 00:26 Home Medications Medication Instructions Recorded Confirmed Type magnesium 250 mg tablet 0 mg PO DAILY 03/05/23 03/05/23 History multivitamin 1 tab PO DAILY 03/05/23 03/05/23 History riboflavin (vitamin B2) 400 mg 400 mg PO DAILY 03/05/23 03/05/23 History tablet sumatriptan succinate 50 mg tablet 50 mg PO DIRECTED PRN Migraine 03/05/23 03/05/23 History Headache Patient History Medical History No pertinent past medical history Social History Smoking Status: Never smoker Hx Alcohol Use: No Hx Substance Use: No Preferred Language: Moldovan Communication Ability: Effective Upholstery Cleaner Required: No Beliefs That Will Affect Care: None Current Living Situation: Spouse Other Information That Helps Us Care for You: No Feels Safe at Home: Yes Safety Concerns: Feels Safe At This Time Assistive Devices: Contacts and Glasses Review of Systems Constitutional: + fever (Subjective) Ear, Nose, Mouth, Throat: no hearing loss Respiratory: no cough and no dyspnea Cardiovascular: no chest pain Gastrointestinal: as per Subjective / HPI Genitourinary: no dysuria Musculoskeletal: no back pain Integumentary: no rash Neurologic: no localized weakness Physical Exam Constitutional: WD/WN, vitals as above Eyes: no conjunctival abnormality ENMT: Ears: no hearing impairment and no external ear abnormality Oral mucosa appears dry Neck: trachea midline Respiratory: normal respiratory effort, lungs clear to auscultation Cardiovascular: Rate/Rhythm: regular rate and regular rhythm Vessels: dorsalis pedis pulses present and radial pulses present Gastrointestinal (Abdomen): Abdomen is soft, nondistended, and nonrigid. Bowel sounds are hypoactive. There is pain noted with palpation which is greatest in the left lower quadrant. Rebound tenderness and guarding are absent. Musculoskeletal: No calf tenderness, feet are warm and nonmottled Skin: no rashes Neurologic: moves all extremities Psychiatric: A+Ox3, euthymic affect Results & Data Vital Signs (Past 12 Hours) Vital Signs Temp Pulse Resp BP Pulse Ox O2 Del Method 03/04/23 22:30 100 H 15 99 03/04/23 22:24 99 H 21 98 03/04/23 22:23 98 H 20 98 Room Air 03/04/23 21:35 36.7 C 104 H 18 140/90 100 Room Air PG Care Time/CCT Total # of Minutes Spent Total Time Spent with Patient: Total time spent is greater than 50% in coordination of care (as documented) at patient's floor/unit and/or counseling patient: [place] [address] IN/OBS CONSULT LVL 5,80M Patient Type New History Detailed Exam Detailed Diagnoses Diverticulitis K57.92
[2023-03-05] MEDS ORDERED: ACETAMINOPHEN 325 MG TAB PO PRN (03:47)
[2023-03-05] MEDS ORDERED: ONDANSETRON INJ 2 MG/ML 2 ML VIAL IV PRN (03:47)
--- NOTE | 2023-03-05 03:53 | History and Physical Report ---
DATE OF ADMISSION: 03/04/2023. CHIEF COMPLAINT: Abdominal pain. HISTORY OF PRESENT ILLNESS: This is a 42-year-old female with past medical history significant for polycystic ovaries, migraines, presents with abdominal pain going on for several days now, initially all over the belly, currently in the left lower quadrant, has some episodes of diarrhea. Denies any blood in stools. No nausea or vomiting, no chest pain, no shortness of breath, no cough, no headache, no runny nose, no sore throat. Currently, resting comfortably and hemodynamically stable. ALLERGIES: TO CAT DANDER. PAST MEDICAL HISTORY: As mentioned above. PAST SURGICAL HISTORY: Biopsy of breast, cryosurgery of cervix, diagnostic labs for infertility. MEDICATIONS: Multivitamins. FAMILY HISTORY: Significant for sister has asthma, thyroid disorder; mother has arrhythmia, paternal grandmother has [place], maternal grandmother has [place] and diabetes; maternal aunt has breast cancer. SOCIAL HISTORY: , no smoking, alcohol rare, no drug use. REVIEW OF SYSTEMS: As per HPI. Rest of the review of systems is negative. PHYSICAL EXAMINATION: GENERAL: The patient is of moderate build, not in acute distress. VITAL SIGNS: Temperature 36.7, pulse 99, respiratory rate 22, blood pressure 123/74, oxygen 97% on room air. HEENT: Pupils equal, round and reactive to light. Oral mucosa moist. NECK: No JVD. No neck masses. CARDIOVASCULAR: S1 and S2 heard. Regular rate and rhythm. No murmur, no gallop. RESPIRATORY SYSTEM: Normal AP diameter. No accessory muscle use. No wheezing, no crackles. ABDOMEN: Soft, bowel sounds present. Tenderness in left lower quadrant with mild guarding, no distention. CENTRAL NERVOUS SYSTEM: Cranial nerves II-XII grossly intact, nonfocal. EXTREMITIES: No edema seen. LABORATORY DATA: WBC 13.1, hemoglobin 11.2, hematocrit 32.8, platelets 366. Sodium 138, potassium 3.1, chloride 100, bicarbonate 28, BUN 9, creatinine 0.6, serum glucose 99, lactate 1.2, calcium 8.8, total bilirubin 0.4, AST 13, ALT 16, alkaline phosphatase 73, lipase 20. Urinalysis negative. SARS-CoV-2 rapid test negative. IMAGING DATA: Pelvic ultrasound, loculated fluid in the left lower quadrant, further evaluation with CT suggested, unremarkable evaluation of the uterus and ovaries. CT abdomen and pelvis with IV contrast shows perforated diverticulitis with 4.1 cm left lower quadrant abscess. ASSESSMENT AND PLAN: This is a 42-year-old female who presents with abdominal pain and found to have perforated diverticulitis with abscess. 1. Abdominal pain, perforated diverticulitis, 4.1 cm left lower abdominal quadrant abscess, keep her n.p.o., IV fluids, IV antiemetics, IV pain medication p.r.n., IV Zosyn. Surgery consulted, closely monitor in the hospital. If worsening, we will repeat the imaging studies. If needed, we will consult IR. 2. Hypokalemia: We will replace. 2. Deep venous thrombosis prophylaxis: hep sub q . DISPOSITION: Closely monitor in the medical floor. Expect to discharge home and follow with her family doctor. Job ID: [id number] CHRISTOPHER
[2023-03-05] MEDS: D5W AND 1/2NSS 1,000 ML IV SCH ×3 (04:02→20:21)
[2023-03-05] MEDS ORDERED: SUMAtriptan succinate 50 MG TAB PO PRN (04:13)
[2023-03-05] MEDS: POTASSIUM CHLORIDE / WTR 10 MEQ/100 ML PLCT IV SCH ×4 (04:55→08:17)
[2023-03-05] MEDS: HYDROmorphone INJ 0.5 MG/0.5 ML SYR IV PRN ×2 (06:26→21:57)
[2023-03-05 07:21] LABS: Basophils # (auto) 0.02 K/uL (0-0.2); Basophils % (auto) 0.2 %; Eosinophils # (auto) 0.02 K/uL (0-0.50); Eosinophils % (auto) 0.2 %; Hemoglobin 9.6 g/dl (12.0-16.0); Immature Granulocytes # (auto) 0.06 K/uL (0.01-0.20); Immature Granulocytes % (auto) 0.5 %; Lymphocytes # (auto) 0.79 K/uL (1.2-3.4); Lymphocytes % (auto) 6.6 %; Mean Corpuscular Hemoglobin 30.6 pg (25.0-34.0); Mean Corpuscular Hgb Conc 35.6 g/dL (32.0-36.0); Mean Platelet Volume 9.6 fL (9.4-12.4); Monocytes # (auto) 1.43 K/uL (0.11-0.59); Neutrophils # (auto) 9.61 K/uL (1.40-6.50); Neutrophils % (auto) 80.5 %; Platelet Count 281 K/uL (130-400); RDW Coefficient of Variation 13.6 % (11.5-14.5); RDW Standard Deviation 42.9 fL (36.4-46.3); Red Blood Count 3.14 M/uL (4.20-5.40); White Blood Count 11.93 K/ul (4.8-10.8)
[2023-03-05 07:48] LABS: Calcium 8.3 mg/dl (8.6-10.3); Creatinine Clr Calc Pharmacy 148.9 ml/min; Est GFR (African American) 140.3 ml/min; Est GFR (Non-African American) 121.1 ml/min; Magnesium 1.9 mg/dl (1.7-2.4); Potassium 3.8 mmol/L (3.5-5.1)
[2023-03-05] MEDS ORDERED: ENOXAPARIN INJ 40 MG/0.4 ML SYR SQ SCH (09:00)
[2023-03-05] MEDS ORDERED: HEPARIN SOD 5,000 UNIT/0.5 ML VIAL SQ SCH ×2 (09:00→14:00)
[2023-03-05] MEDS: PIPERACILLIN/TAZOBACTAM 4.5 GM in DEXTROSE 5% 100 ML IV SCH ×2 (10:09→17:37)
--- NOTE | 2023-03-05 16:00 | Hospitalist Progress Note ---
Date of Service March 05, 2023 Assessment & Plan (1) Diverticulitis of intestine with perforation and abscess: Plan 1. Abdominal pain, perforated diverticulitis, 4.1 cm left lower abdominal quadrant abscess: keep her n.p.o., IV fluids, IV antiemetics, IV pain medication p.r.n., IV Z osyn. Surgery consulted, closely monitor in the hospital. If worsening, we will repeat the imaging studies. If needed, we will consult IR. 2. Hypokalemia: resolved 2. Deep venous thrombosis prophylaxis: hep sub q . Admission and Anticipated Discharge Date Admission Date: March 05, 2023 Subjective Patient seen and examined at bedside as a follow-up of abdominal pain/perforated diverticulitis/diverticular abscess. Patient was lying in bed, on room air, NAD, reports improving belly pain, 5/10 at bedside exam, he is n.p.o., denies any new acute event overnight, denies fever/chills/headache/dizziness/chest pain/sore throat/other review of symptoms. Patient reports having 2 loose bowels today. Physical Exam Physical Exam: GENERAL: Alert and oriented x3. NAD, on RA. HEENT: No pallor, no icterus. Pupils equal, round and reactive to light. Oral mucosa moist. NECK: No JVD, no neck masses. HEART: S1 and S2 heard. Regular rate and rhythm. No murmur, no gallop. RESPIRATORY SYSTEM: Normal AP diameter. No accessory muscle use. No wheezing, no crackles. ABDOMEN: Soft, bowel sounds present, LLQ tender, no distention. CENTRAL NERVOUS SYSTEM: No facial droop. Speech is clear. Obeys simple commands. Moves extremities. EXTREMITIES: No edema, no erythema seen. Results & Data Results & Data Vital Signs (Past 12 Hours) Vital Signs Temp Pulse Resp BP Pulse Ox O2 Del Method 03/05/23 08:26 Room Air 03/05/23 07:19 37.2 C 89 16 112/72 97 Room Air
[2023-03-06] MEDS: PIPERACILLIN/TAZOBACTAM 4.5 GM in DEXTROSE 5% 100 ML IV SCH ×4 (01:06→23:50)
[2023-03-06] MEDS: D5W AND 1/2NSS 1,000 ML IV SCH ×3 (03:36→21:30)
[2023-03-06 07:40] LABS: Hematocrit (blood only) 27.9 % (37.0-47.0); Hemoglobin 9.5 g/dl (12.0-16.0); Mean Corpuscular Hemoglobin 30.3 pg (25.0-34.0); Mean Corpuscular Hgb Conc 34.1 g/dL (32.0-36.0); Mean Corpuscular Volume 88.9 fL (80.0-100.0); Mean Platelet Volume 9.5 fL (9.4-12.4); Platelet Count 335 K/uL (130-400); RDW Coefficient of Variation 14.1 % (11.5-14.5); RDW Standard Deviation 45.3 fL (36.4-46.3); Red Blood Count 3.14 M/uL (4.20-5.40)
[2023-03-06] MEDS ORDERED: ACETAMINOPHEN 1,000 MG/100 ML VIAL IV STA (08:03)
[2023-03-06 08:11] LABS: Calcium 8.3 mg/dl (8.6-10.3); Potassium 3.6 mmol/L (3.5-5.1)
[2023-03-06 08:17] LABS: BUN Creatinine Ratio 6.6 (10-20); Est GFR (African American) 131.4 ml/min; Est GFR (Non-African American) 113.4 ml/min; Phosphorus 3.1 mg/dl (2.5-4.9)
--- NOTE | 2023-03-06 08:21 | Surgery Progress Note ---
I have seen and examined this patient this am with the surgical PA. I agree with the plan. We will continue to monitor for now and continue NPO. She does state she feels better with less abdominal pain although her WBC increased. We will F/U labs in the am. Date of Service March 06, 2023 Assessment & Plan (1) Diverticulitis of intestine with perforation and abscess: Plan: Patient here with diverticulitis with abscess formation WBC 14(11). Vitals are stable and patient afebrile Pt with improved pain since admission, but still with LLQ TTP Likely keep NPO for today yet given increase in WBC. possibility of discussing case with IR for drainage of abscess if worsens Ordered 1x IV APAP for headache Continue IV abx and supportive care for now No plans for acute surgical intervention at this time, will follow Admission and Anticipated Discharge Date Admission Date: March 05, 2023 Subjective Patient reports feeling some improvement in pain. Had some nausea yesterday after walking around, but nothing today. Has a slight headache. Reports passing flatus and some loose stools. Physical Exam Physical Exam: awake/alert, no distress Respiratory: normal respiratory effort Gastrointestinal (Abdomen): Inspection/Auscultation: abdomen not distended Percussion/Palpation: + abdomen tender (LLQ ttp ) and abdomen soft Results & Data Vital Signs (Past 12 Hours) Vital Signs Temp Pulse Resp BP Pulse Ox O2 Del Method 03/06/23 07:57 37.4 C 96 H 16 121/78 96 Room Air 03/05/23 22:00 36.7 C 100 H 18 100/65 97 Room Air PG Care Time/CCT Total # of Minutes Spent Total Time Spent with Patient: Total time spent is greater than 50% in coordination of care (as documented) at patient's floor/unit and/or counseling patient: Coding Level of Care Code 80637 SUB INP/OBS CARE Diagnoses Diverticulitis of intestine with perforation and abscess K57.80
--- NOTE | 2023-03-06 15:09 | Hospitalist Progress Note ---
Date of Service March 06, 2023 Assessment & Plan (1) Diverticulitis of intestine with perforation and abscess: Plan 1. Abdominal pain, perforated diverticulitis, 4.1 cm left lower abdominal quadrant abscess: Maintain n.p.o., IV fluids, IV antiemetics, IV pain medication p.r.n., IV Zo syn. Surgery on board, closely monitor in the hospital. Appreciate recs. If worsening, we will repeat the imaging studies. If needed, we will consult IR. 2. Hypokalemia: resolved 2. Deep venous thrombosis prophylaxis: hep sub q , pt would prefer to ambulate and declined hep sub q. Admission and Anticipated Discharge Date Admission Date: March 05, 2023 Subjective Patient seen and examined at bedside as a follow-up of abdominal pain/perforated diverticulitis/diverticular abscess. Patient was lying in bed, on room air, NAD, reports improving belly pain, minimal today, she is n.p.o., denies any new acute event overnight, denies fever/chills/headache/dizziness/chest pain/sore throat/other review of symptoms. WBC is still elevated, plan to keep NPO and c/w iv atb for now. Physical Exam Physical Exam: GENERAL: Alert and oriented x3. NAD, on RA. HEENT: No pallor, no icterus. Pupils equal, round and reactive to light. Oral mucosa moist. NECK: No JVD, no neck masses. HEART: S1 and S2 heard. Regular rate and rhythm. No murmur, no gallop. RESPIRATORY SYSTEM: Normal AP diameter. No accessory muscle use. No wheezing, no crackles. ABDOMEN: Soft, bowel sounds present, LLQ tender, no distention. CENTRAL NERVOUS SYSTEM: No facial droop. Speech is clear. Obeys simple commands. Moves extremities. EXTREMITIES: No edema, no erythema seen. Results & Data Results & Data Vital Signs (Past 12 Hours) Vital Signs Temp Pulse Resp BP Pulse Ox O2 Del Method 03/06/23 07:57 37.4 C 96 H 16 121/78 96 Room Air
[2023-03-06] MEDS ORDERED: Nursing to Pharmacy Communication SCH (22:00)
[2023-03-07] MEDS: D5W AND 1/2NSS 1,000 ML IV SCH ×3 (05:40→23:00)
[2023-03-07] MEDS: PIPERACILLIN/TAZOBACTAM 4.5 GM in DEXTROSE 5% 100 ML IV SCH ×3 (07:49→23:00)
[2023-03-07 07:57] LABS: Basophils # (auto) 0.03 K/uL (0-0.2); Basophils % (auto) 0.2 %; Eosinophils # (auto) 0.07 K/uL (0-0.50); Eosinophils % (auto) 0.5 %; Hematocrit (blood only) 25.8 % (37.0-47.0); Hemoglobin 8.9 g/dl (12.0-16.0); Immature Granulocytes # (auto) 0.06 K/uL (0.01-0.20); Immature Granulocytes % (auto) 0.4 %; Lymphocytes # (auto) 1.14 K/uL (1.2-3.4); Mean Corpuscular Hemoglobin 30.2 pg (25.0-34.0); Mean Corpuscular Hgb Conc 34.5 g/dL (32.0-36.0); Mean Corpuscular Volume 87.5 fL (80.0-100.0); Mean Platelet Volume 9.3 fL (9.4-12.4); Monocytes # (auto) 1.39 K/uL (0.11-0.59); Monocytes % (auto) 9.8 %; Neutrophils % (auto) 81.1 %; Platelet Count 372 K/uL (130-400); RDW Coefficient of Variation 14.1 % (11.5-14.5); RDW Standard Deviation 45.2 fL (36.4-46.3); Red Blood Count 2.95 M/uL (4.20-5.40); White Blood Count 14.19 K/ul (4.8-10.8)
[2023-03-07 08:20] LABS: BUN Creatinine Ratio 7.5 (10-20); Calcium 8.2 mg/dl (8.6-10.3); Creatinine Clr Calc Pharmacy 140.5 ml/min; Est GFR (African American) 137.7 ml/min; Est GFR (Non-African American) 118.8 ml/min; Potassium 3.5 mmol/L (3.5-5.1)
--- NOTE | 2023-03-07 08:39 | Surgery Progress Note ---
I have seen and examined this patient with the surgical PA. I agree with this plan. In general the patient is finally feeling notably better in spite of her increased leukocytosis and low grade fevers. Will follow up IR drainage. Date of Service March 07, 2023 Assessment & Plan (1) Diverticulitis of intestine with perforation and abscess: Plan: Patient here with diverticulitis with abscess formation WBC 14(14). low grade temps noted overnight, Tmax 38.6C at 10pm yesterday LLQ pain unchanged from yesterday, but overall improved since admission Discussed case with IR who agrees patient has a drainable abscess on CT imaging, will plan on IR drainage later today Continue NPO with IVF and IV abx today No plans for acute surgical intervention at this time, will follow Admission and Anticipated Discharge Date Admission Date: March 05, 2023 Subjective Patient is feeling about the same as yesterday. Denies nausea/vomiting. Pain still present in LLQ, but not worsening. [place] warm overnight. Continues passing flatus and BMs. Is ambulating the halls and walked 5 miles yesterday. Stil has on and off headache. Physical Exam Physical Exam: awake/alert Respiratory: normal respiratory effort Gastrointestinal (Abdomen): Inspection/Auscultation: abdomen not distended Percussion/Palpation: + abdomen tender (ttp in the llq) and abdomen soft Results & Data Vital Signs (Past 12 Hours) Vital Signs Temp Pulse Resp BP Pulse Ox O2 Del Method 03/07/23 07:42 37.7 C H 93 H 16 112/76 95 Room Air 03/06/23 22:52 37.7 C H 03/06/23 21:50 38.6 C H 102 H 18 109/72 98 Room Air PG Care Time/CCT Total # of Minutes Spent Total Time Spent with Patient: Total time spent is greater than 50% in coordination of care (as documented) at patient's floor/unit and/or counseling patient: Coding Level of Care Code 07571 SUB INP/OBS CARE 11/09MIN Diagnoses Diverticulitis of intestine with perforation and abscess K57.80
[2023-03-07] MEDS ORDERED: ACETAMINOPHEN 325 MG TAB PO PRN (08:44)
[2023-03-07 09:31] LABS: INR 1.3 (0.9-1.1); Partial Thromboplastin Ratio 1.1; Partial Thromboplastin Time 30.7 Seconds (21.0-31.0); Prothrombin Time 13.7 Seconds (9.0-12.0)
[2023-03-07] MEDS ORDERED: fentaNYL citrate PF 100 MCG/2 ML VIAL ONE (13:18)
--- NOTE | 2023-03-07 14:32 | CT Scan Report ---
CT-guided pelvic abscess drain placement INDICATION: Diverticular abscess PROCEDURE: Procedure and risks were explained. Informed consent was obtained. A final timeout was com pleted. The left lower quadrant was prepped and draped in sterile fashion. 1% buffered lidocaine was utilized for skin anesthesia. Utilizing CT guidance, an 18-gauge Chiba needle was advanced into the left lower quadrant anterior ab scess collection. A 0.035 Amplatz wire was introduced through the entry needle and exchanged over a w shahid for an 8 [place] locking pigtail catheter. Approximately 25 mL of thick purulent fluid was aspirat ed during the procedure with a portion was sent to lab for culture analysis. The catheter was sutured to the skin with 2-0 silk and placed to suction bag drainage. The patient tolerated the procedure we ll. Post CT imaging demonstrated adequate catheter position with reduction of the abscess collection. Vital signs will be monitored post procedure on the floor. IMPRESSION: CT-guided pelvic abscess drain placement as above. Performed, dictated, and signed by Sushil Maza PA-C; to be co-signed by Dr. Julio Burnett. Electronically signed by: Julio Burnett M.D. 03/07/2023 3:12 PM
--- NOTE | 2023-03-07 14:42 | Hospitalist Progress Note ---
Date of Service March 07, 2023 Assessment & Plan (1) Diverticulitis of intestine with perforation and abscess: Plan 1. Abdominal pain, perforated diverticulitis, 4.1 cm left lower abdominal quadrant abscess: Maintain n.p.o., IV fluids, IV antiemetics, IV pain medication p.r.n., IV Zo syn. Surgery on board, closely monitor in the hospital. To undergo IR drainage this afternoon 2. Hypokalemia: resolved 3. Deep venous thrombosis prophylaxis: hep sub q , pt would prefer to ambulate and declined hep sub q. Dispo: continues to remain hospitalized not yet medically stable Pt was seen and examined in collaboration with Dr. Chirinos, please see addendum Admission and Anticipated Discharge Date Admission Date: March 05, 2023 Supervising Physician Co-Signing Physician Notes Patient was being managed for diverticulitis and abscess, status post IR drainage of abscess today. Had fever overnight, expect to improve fever with drainage of abscess. On examination, abdominal pain has gone down/minimal tenderness, heart/lung examination WNL, rest of the examination as above. I have seen and examined the patient and have discussed the case with the provider above. I agree with the assessment and plan as stated. Subjective Pt was seen and examined in room 356-2. F/U diverticulitis w/ abscess. Pt continues with low grade fevers and LLQ abd pain. Pain is localized and nonradiating. Passing flatus and having bowels. Plan is for pt to undergo IR drainage of abscess today due to persistence of infection. Denies f/c/s, chest pain, sob, n/v/d. Review of Systems Review of Systems: All systems reviewed & are unremarkable except as noted in HPI & below Physical Exam Physical Exam: Gen: WD/WN, NAD, A&O x3 HEENT: Normocephalic, atraumatic, conjunctivae moist, sclerae anicteric, mucous membranes moist. Lung: Clear to Auscultation bilaterally, no wheezes/rales/rhonchi Heart: Regular rate, regular rhythm, no murmurs, rubs, or gallops Abdomen: Soft, TTP LLQ, ND +BS x 4 Extremities: No edema Skin: Warm, no rash, negative turgor. Results & Data Results & Data Vital Signs (Past 12 Hours) Vital Signs Temp Pulse Resp BP Pulse Ox O2 Del Method 03/07/23 10:02 37.6 C H 03/07/23 07:42 37.7 C H 93 H 16 112/76 95 Room Air Laboratory Results Short CBC 03/07/23 Range/Units 07:30 WBC 14.19 H (4.8-10.8) K/ul Hgb 8.9 L (12.0-16.0) g/dl Hct 25.8 L (37.0-47.0) % Plt Count 372 (130-400) K/uL BMP 03/07/23 07:30 Sodium 138 Potassium 3.5 Chloride 104 Carbon Dioxide 28 BUN 4 L Creatinine 0.53 L Glucose 114 H Calcium 8.2 L Medications Administered Current Inpatient Medications Acetaminophen (Acetaminophen 325 Mg Tab) 650 mg PO Q4H PRN PRN Reason: pain/fever/headache Stop: 04/04/23 03:46 Hydromorphone HCl (Hydromorphone Inj 0.5 Mg/0.5 Ml Syr) 0.5 mg IV Q3H PRN PRN Reason: Pain Stop: 03/19/23 03:46 Last Admin: 03/05/23 21:57 Dose: 0.5 mg Dextrose/Sodium Chloride (D5w And 1/2nss) 1,000 mls @ 125 mls/hr IV .Q8H [place] Stop: 04/04/23 03:46 Last Admin: 03/07/23 14:39 Dose: 125 mls/hr Piperacillin Sod/Tazobactam (Sod 4.5 gm/ Dextrose) 120 mls @ 30 mls/hr IV Q8H [place]; Protocol Stop: 03/15/23 07:59 Last Infusion: 03/07/23 11:57 Dose: Infused Ondansetron HCl (Ondansetron Inj 2 Mg/Ml 2 Ml Vial) 4 mg IV Q6H PRN PRN Reason: Nausea Stop: 04/04/23 03:46 Sumatriptan Succinate (Sumatriptan Succinate 50 Mg Tab) 50 mg PO DAILY PRN PRN Reason: Migraine Headache Stop: 04/04/23 04:12 Last Admin: 03/05/23 04:55 Dose: 50 mg
[2023-03-07] MEDS: HYDROmorphone INJ 0.5 MG/0.5 ML SYR IV PRN (21:04)
[2023-03-07] MEDS ORDERED: oxyCODONE HCL IR 5 MG TAB (IMMEDIATE RELEASE) PO PRN (22:15)
[2023-03-08] MEDS: D5W AND 1/2NSS 1,000 ML IV SCH (06:45)
[2023-03-08] MEDS: PIPERACILLIN/TAZOBACTAM 4.5 GM in DEXTROSE 5% 100 ML IV SCH (08:25)
[2023-03-08 08:45] LABS: Hematocrit (blood only) 27.2 % (37.0-47.0); Hemoglobin 9.2 g/dl (12.0-16.0); Mean Corpuscular Hgb Conc 33.8 g/dL (32.0-36.0); Mean Corpuscular Volume 88.6 fL (80.0-100.0); Mean Platelet Volume 9.3 fL (9.4-12.4); Platelet Count 441 K/uL (130-400); RDW Coefficient of Variation 14.4 % (11.5-14.5); RDW Standard Deviation 46.9 fL (36.4-46.3); Red Blood Count 3.07 M/uL (4.20-5.40); White Blood Count 7.19 K/ul (4.8-10.8)
[2023-03-08 09:02] LABS: Albumin Globulin Ratio 1.1 (0.9-2); Albumin Level 3.3 gm/dl (3.4-5.0); BUN Creatinine Ratio 7.5 (10-20); Bilirubin,Total 0.4 mg/dl (0.2-1.0); Calcium 8.7 mg/dl (8.6-10.3); Creatinine Clr Calc Pharmacy 140.5 ml/min; Est GFR (African American) 137.7 ml/min; Est GFR (Non-African American) 118.8 ml/min; Potassium 3.5 mmol/L (3.5-5.1); Total Protein 6.3 gm/dl (6.0-8.3)
[2023-03-08 09:17] LABS: Lymphocytes % (auto) 19.2 %; Neutrophils % (auto) 69.3 %
[2023-03-08 09:18] LABS: Basophils % (auto) 0.4 %; Eosinophils % (auto) 1.7 %; Immature Granulocytes % (auto) 0.4 %; Neutrophils # (auto) 4.98 K/uL (1.40-6.50)
[2023-03-08 09:20] LABS: Lymphocytes # (auto) 1.38 K/uL (1.2-3.4)
[2023-03-08 09:21] LABS: Eosinophils # (auto) 0.12 K/uL (0-0.50); Monocytes # (auto) 0.65 K/uL (0.11-0.59)
[2023-03-08 09:24] LABS: Basophils # (auto) 0.03 K/uL (0-0.2); Immature Granulocytes # (auto) 0.03 K/uL (0.01-0.20); Polychromasia 1+
--- NOTE | 2023-03-08 11:34 | Surgery Progress Note ---
I have seen and examined this patient this am with the surgical PA. I agree with the plan. Date of Service March 08, 2023 Assessment & Plan (1) Diverticulitis of intestine with perforation and abscess: Plan: Patient here with diverticulitis with abscess formation WBC down to 7(14) after IR drainage yesterday. vitals are stable and patient afebrile LLQ pain overall improving IR drain with about 40cc purulent output We will advance diet to low fiber and see how she fairs...if no issues she could potentially be discharged to home later today from our standpoint. She is instructed to monitor her drain output and call our office for an appointment ei ther this upcoming Monday or next Monday Complete full course of abx, may transition to PO for home Continue on a low fiber diet upon discharge Admission and Anticipated Discharge Date Admission Date: March 05, 2023 Subjective Patient reports feeling better since IR drainage. She does have some mild abdominal pains, but are manageable. She is tolerating clear liquids, no nausea/vomiting. Passing gas and loose stools. Physical Exam Physical Exam: awake/alert Gastrointestinal (Abdomen): Inspection/Auscultation: abdomen not distended Percussion/Palpation: + abdomen tender (mild generalized discomfort and ttp near drain site) and abdomen soft IR drain in place with 40cc purulent output Results & Data Vital Signs (Past 12 Hours) Vital Signs Temp Pulse Resp BP Pulse Ox O2 Del Method 03/08/23 07:48 36.8 C 80 12 100/70 97 Room Air PG Care Time/CCT Total # of Minutes Spent Total Time Spent with Patient: Total time spent is greater than 50% in coordination of care (as documented) at patient's floor/unit and/or counseling patient: Coding Level of Care Code 39434 SUB INP/OBS CARE 11/09MIN Diagnoses Diverticulitis of intestine with perforation and abscess K57.80
--- NOTE | 2023-03-08 13:49 | Discharge Summary ---
Discharge Summary Date of Service March 08, 2023 Notes For Next Care Provider Patient hospitalized for acute perforated diverticulitis with a 4.1 cm left lower quadrant abscess. She was seen and evaluated by general surgery, placed on bowel rest, IV fluids and IV antibiotics. Patient's white blood cell count continued to remain elevated and she continued to have pain despite bowel rest antibiotic therapy. On 03/07/2023 patient was seen and evaluated by IR and underwent CT-guided pelvic abscess drain placement. Her symptoms gradually improved after that. She will complete a total of 14 days of antibiotics and is discharged on regimen of ciprofloxacin and Flagyl. Patient was anemic during hospital stay felt likely in setting of infection. Her hemoglobin on day of discharge was 9.2. Recommend anemia panel at hospital follow-up. She does have a culture pending from drainage of abscess that will need followed upon discharge. Medication Changes From Visit Ciprofloxacin 500 mg twice daily for additional 11 days, next dose evening on 03/08/2023. Metronidazole 500 mg 3 times daily for additional 11 days, next dose evening of 03/08/2023. Recommend daily probiotic while on antibiotic therapy. Tramadol 50mg every 6 hours as needed for severe pain. Admission HPI Per Admitting Provider HISTORY OF PRESENT ILLNESS: This is a 42-year-old female with past medical history significant for polycystic ovaries, migraines, presents with abdominal pain going on for several days now, initially all over the belly, currently in the left lower quadrant, has some episodes of diarrhea. Denies any blood in stools. No nausea or vomiting, no chest pain, no shortness of breath, no cough, no headache, no runny nose, no sore throat. Currently, resting comfortably and hemodynamically stable. Admission Exam Per Admitting Provider PHYSICAL EXAMINATION: GENERAL: The patient is of moderate build, not in acute distress. VITAL SIGNS: Temperature 36.7, pulse 99, respiratory rate 22, blood pressure 123/74, oxygen 97% on room air. HEENT: Pupils equal, round and reactive to light. Oral mucosa moist. NECK: No JVD. No neck masses. CARDIOVASCULAR: S1 and S2 heard. Regular rate and rhythm. No murmur, no gallop. RESPIRATORY SYSTEM: Normal AP diameter. No accessory muscle use. No wheezing, no crackles. ABDOMEN: Soft, bowel sounds present. Tenderness in left lower quadrant with mild guarding, no distention. CENTRAL NERVOUS SYSTEM: Cranial nerves II-XII grossly intact, nonfocal. EXTREMITIES: No edema seen. Principal Dx & Hospital Course #1 = Principal Diagnosis (1) Diverticulitis of intestine with perforation and abscess: Plan This is a 42 yr old F who is otherwise healthy who presented to ED with LLQ pain. CT a/p revealed a perforated diverticulitis, 4.1 cm left lower abdominal quadrant abscess. Patient was placed on n.p.o. status, bowel rest, IV fluids, IV antibiotics and pain medication. She was seen and evaluated by general surgery. Despite antibiotic therapy patient's white count continues to remain elevated and her pain persisted. She was seen and evaluated by IR and a CT- guided drain was placed. With drain placement patient had significant impro vement in symptoms and white count normalized. Her diet was gradually advanced and at time of discharge she was tolerating a low fiber diet. She was ambulating about the unit multiple times daily. Her hospital course was complicated by hypokalemia and this was since repleted. She also had noted anemia. Her hemoglobin at time of discharge was 9.2. This was felt to be in the setting of infection and blood loss in relation to acute perforated diverticulitis and likely some dilutional component as well. She otherwise had no signs of bleeding. Recommend anemia panel as outpatient. At time of discharge patient was hemodynamically stable and pain-free. She will follow-up with general surgery either on 03/10 or 03/14 for drain removal based on drainage output. She was instructed on drain care prior to discharge. She will complete a 14-day course of antibiotic therapy with additional ciprofloxacin and Flagyl course. Discharge Exam Gen: WD/WN, NAD, A&O x3 HEENT: Normocephalic, atraumatic, conjunctivae moist, sclerae anicteric, mucous membranes moist. Lung: Clear to Auscultation bilaterally, no wheezes/rales/rhonchi Heart: Regular rate, regular rhythm, no murmurs, rubs, or gallops Abdomen: Soft, NT,l, ND +BS x 4 Extremities: No edema Skin: Warm, no rash, negative turgor. Updated Medication List Medication Instructions Recorded Confirmed Type magnesium 250 mg tablet 0 mg PO DAILY 03/05/23 03/09/23 History multivitamin 1 tab PO DAILY 03/05/23 03/09/23 History riboflavin (vitamin B2) 400 mg 400 mg PO DAILY 03/05/23 03/09/23 History tablet sumatriptan succinate 50 mg tablet 50 mg PO DIRECTED PRN Migraine 03/05/23 03/09/23 History Headache Saccharomyces boulardii 250 mg 250 mg PO DAILY #14 caps 03/08/23 03/09/23 Rx capsule (Florastor) ciprofloxacin HCl 500 mg tablet 500 mg PO Q12H 11 days #22 tabs 03/08/23 3 Rx (Cipro) metronidazole 500 mg tablet 500 mg PO Q8H 11 days #33 tabs 03/08/23 03/09/23 Rx Hospital Stay Data Consultations 03/05/23 01:16 Consult General Surgery Stat 03/05/23 01:29 ED Decision to Admit Stat Diagnostic Imagining Performed Abdomen/Pelvis CT 03/04/23 22:17 Exam(s): CT ABDOMEN + PELVIS With Contrast Oral - High Density Amt: 30ml Gastrograffin, IV Amt: 98ml Optiray 320 EXAM: CT Abdomen and Pelvis With Intravenous Contrast CLINICAL HISTORY: Reason for exam: suprapubic, LLQ pain. TECHNIQUE: Axial computed tomography images of the abdomen and pelvis with intravenous contrast. Automated exposure control was utilized for the study. A dose lowering technique was utilized adhering to the principles of ALARA. CONTRAST: Patient received 30ml Gastrograffin of Oral - High Density and 98ml Optiray 320 of IV contrast COMPARISON: No relevant prior studies available. FINDINGS: Lung bases: Unremarkable. No mass. No consolidation. ABDOMEN: Liver: Unremarkable. No mass. Gallbladder and bile ducts: Unremarkable. No calcified stones. No ductal dilation. Pancreas: Unremarkable. No mass. No ductal dilation. Spleen: Unremarkable. No splenomegaly. Adrenals: Unremarkable. No mass. Kidneys and ureters: Unremarkable. No solid mass. No hydronephrosis. Stomach and bowel: Findings suggest perforated diverticulitis with an air and fluid-filled collection in the left lower quadrant measuring 4.1 x 3.3 x 3.6 cm. No obstruction. PELVIS: Appendix: No findings to suggest acute appendicitis. Bladder: Unremarkable. No mass. Reproductive: There is a tampon in place within the vagina. ABDOMEN and PELVIS: Intraperitoneal space: Unremarkable. No free air. No significant fluid collection. Bones/joints: No acute fracture. No dislocation. Soft tissues: Unremarkable. Vasculature: Unremarkable. No abdominal aortic aneurysm. Lymph nodes: Unremarkable. No enlarged lymph nodes. IMPRESSION: Perforated diverticulitis with a 4.1 cm left lower quadrant abscess. Electronically signed by: Siva Zavala MD 03/05/23 00:49 AM Pelvis Ultrasound 03/04/23 22:17 Exam(s): US PELVIS EXAM: US Pelvis Transabdominal, Complete CLINICAL HISTORY: Reason for exam: pelvic pain, LLQ pain. TECHNIQUE: Real-time complete transabdominal pelvic ultrasound with image documentation. COMPARISON: No relevant prior studies available. FINDINGS: Uterus/cervix: Endometrial lining measures 0.8 cm. The uterus measures 7.3 x 3.9 x 5.0 cm. No myometrial mass. Right ovary: The right ovary measures 4.2 x 1.7 x 2.8 cm. Normal blood flow. Left ovary: The left ovary measures 3.8 x 2.6 x 3.3 cm. Normal blood flow. Free fluid: There is some loculated fluid in the left lower quadrant. Bladder: Unremarkable as visualized. Wall is normal thickness for degree of distention. IMPRESSION: Loculated fluid in the left lower quadrant, further evaluation with CT is suggested. Unremarkable evaluation of the uterus and ovaries. Electronically signed by: Siva Zavala MD 03/05/23 00:18 AM Drainage Catheter Insertion 03/07/23 08:41 CT-guided pelvic abscess drain placement INDICATION: Diverticular abscess PROCEDURE: Procedure and risks were explained. Informed consent was obtained. A final timeout was completed. The left lower quadrant was prepped and draped in sterile fashion. 1% buffered lidocaine was utilized for skin anesthesia. Utilizing CT guidance, an 18-gauge Chiba needle was advanced into the left lower quadrant anterior abscess collection. A 0.035 Amplatz wire was introduced through the entry needle and exchanged over a wire for an 8 Latvian locking pigtail catheter. Approximately 25 mL of thick purulent fluid was aspirated during the procedure with a portion was sent to lab for culture analysis. The catheter was sutured to the skin with 2-0 silk and placed to suction bag drainage. The patient tolerated the procedure well. Post CT imaging demonstrated adequate catheter position with reduction of the abscess collection. Vital signs will be monitored post procedure on the floor. IMPRESSION: CT-guided pelvic abscess drain placement as above. Performed, dictated, and signed by Sushil Maza PA-C; to be co-signed by Dr. Julio Burnett. Electronically signed by: Julio Burnett M.D. 03/07/2023 3:12 PM Pending Results Patient Have Any Pending Studies at Discharge: Yes (Culture from drainage of abscess) Discharge Instructions Given to Patient (Per Discharging Provider) Please call Dr. Johnston's office tomorrow, 03/09/23 with your drain output. At that time we will decide on if we will remove your drain this upcoming Monday03/10/23 vs. Monday03/14/23 Please care for your IR drain as you have been instructed prior to discharge from the hospital. Monitor your drain output and keep a daily log until your follow up with the surgeon Please continue on a low fiber diet over the next few weeks until your bowel movements normalize MEDICATION CHANGES: Ciprofloxacin 500 mg twice daily for additional 11 days, next dose evening on 03/08/2023. Metronidazole 500 mg 3 times daily for additional 11 days, next dose evening of 03/08/2023. Recommend daily probiotic while on antibiotic therapy. Tramadol 50mg every 6 hours as needed for severe pain. SUMMARY OF TEST RESULTS: You were diagnosed with perforated diverticulitis with evidence of abscess. You were treated with bowel rest, IV fluids, IV antibiotics and pain control. Unfortunately your symptoms did not completely resolve and you required interventional radiology services for drainage of your abscess. Your symptoms and white count significantly improved after drainage of abscess. Your drain remains in place at time of discharge. You will need to complete full course of antibiotic therapy and follow-up with surgery as scheduled. PENDING TEST RESULTS: Culture of drainage from abscess is pending at time of discharge. Your primary care provider or surgeon will need to follow up on this. RECOMMENDATIONS FOR FOLLOW-UP: Please complete antibiotics in its entirety. Recommend probiotic daily while on antibiotic therapy. Recommend abstaining from any alcohol while on antibiotic therapy as it can occasionally cause a adverse reaction of vomiting. Recommend low fiber diet at the direction of general surgery. They will instruct you when you are able to transition to high-fiber diet. Recommend staying well-hydrated drinking 2 L of water daily. Recommend Tylenol 500 mg every 6 hours as needed for pain. Recommend follow-up primary care provider as scheduled for hospital follow-up. Recommend follow-up with general surgery as scheduled for drain management. Recommend having your primary care provider order an anemia lab panel at your next visit. Your blood counts were low during hospital stay which is likely due to the infection and dilution from IV fluids. Would recommend checking iron, vitamin b12 and folic acid levels. OTHER INSTRUCTIONS: Seek medical attention if you have: * temperature above 101 * chest pain or trouble breathing * abdominal pain, nausea, vomiting * diarrhea, dark stools or bloody stools * any unanswered questions or concerns Call 911 if symptoms are severe. Please take good care of yourself. It has been a pleasure taking care of you. Please take care of yourself. If you have any questions regarding your recent hospitalization please contact [facility] and request Vinny Bowenist @ [phone]. Brianna Benjamin PA-C Total Time Total Time Spent Total Time Spent (In Minutes): 45 minutes Supervising Physician Co-Signing Physician Notes Patient was seen and examined independently. Chart reviewed. Case discussed with SHARA
[2023-03-09] MEDS ORDERED: SACCHAROMYCES BOULARDII 250 MG CAP PO SCH (09:00)
== END 2023-03-08 16:06 | disposition home or self-care (01) | DRG 392 ==
LOC: ED 21:34 → SUATTDRO 03-05 02:35 → 3W 03-05 02:35
DX: K57.80 Diverticulitis of intestine, part unspecified, with perforation and abscess without bleeding; Z91.048 Other nonmedicinal substance allergy status; E87.6 Hypokalemia